=== PATIENT | female | born 1960 ===

== ENCOUNTER 2018-08-25 18:48 | Emergency (ER) | payer SELFPAY ==
[2018-08-25 19:05] VITALS: TEMP 98.3
[2018-08-25] MEDS ORDERED: DiphenhydrAMINE 50 mg/ml Inj IVP STA (19:51)
--- NOTE | 2018-08-25 19:51 | ED PDOC ---
HPI: Allergic Reaction Time Seen by Provider: 08/25/18 19:20 Chief Complaint (Nursing): Allergic Reaction Chief Complaint (Provider): Rash History Per: Patient, Health Communications Specialist (Marichuy Bradley #[id number]) History/Exam Limitations: no limitations Onset/Duration Of Symptoms: Days (x1) Current Symptoms Are (Timing): Still Present Additional Complaint(s): 57 year old female with pmhx of htn (clinic doctor took her off meds in jul.) presents to the ED for evaluation of a rash. Patient states that yesterday she developed an itchy, red, and swollen rash to her face which spread to her chest and back around 0500 this morning. Otherwise, denies respiratory symptoms, throat swelling, fever, vomiting, and any new exposures such as but not limited to food, perfumes, detergents, or lotions. Did not take any medications since onset of symptoms and has never had a rash like this before. PMD: Clinic Past Medical History Reviewed: Historical Data, Nursing Documentation, Vital Signs Vital Signs: Last Vital Signs Temp 98.3 F 08/25/18 19:03 Pulse 80 08/25/18 19:03 Resp 16 08/25/18 19:03 BP 171/77 H 08/25/18 19:03 Pulse Ox 100 08/25/18 19:03 - Medical History PMH: HTN - Surgical History Surgical History: No Surg Hx - Family History Family History: States: Unknown Family Hx - Social History Current smoker - smoking cessation education provided: No Alcohol: None Drugs: Denies - Home Medications Home Medications: Ambulatory Orders Medication Instructions Recorded Enalapril Maleate [Vasotec] 10 mg PO DAILY #30 tab 03/19/15 Enalapril Maleate 10 mg PO DAILY #7 tablet 07/16/15 DiphenhydrAMINE [Benadryl] 25 mg PO Q6H PRN #10 cap 08/25/18 Famotidine [Pepcid] 20 mg PO BID #10 tab 08/25/18 predniSONE [Prednisone] 40 mg PO DAILY #8 tab 08/25/18 - Allergies Allergies/Adverse Reactions: Allergies Allergy/AdvReac Type Severity Reaction Status Date / Time No Known Allergies Allergy Verified 08/25/18 19:02 Review of Systems ROS Statement: Except As Marked, All Systems Reviewed And Found Negative Constitutional: Negative for: Fever ENT: Negative for: Throat Swelling Respiratory: Negative for: Cough, Shortness of Breath, Wheezing Gastrointestinal: Negative for: Vomiting Skin: Positive for: Rash (itchy, swollen, and red to face, chest, and back) Physical Exam - Reviewed Nursing Documentation Reviewed: Yes Vital Signs Reviewed: Yes - Physical Exam Appears: Positive for: No Acute Distress Head Exam: Positive for: ATRAUMATIC, NORMOCEPHALIC Skin: Positive for: Rash (pruritic urticarial rash noted to face, chest, and back) Eye Exam: Positive for: Normal appearance ENT: Positive for: Normal ENT Inspection, Pharynx Is (clear and unremarkable). Negative for: Pharyngeal Erythema, Tonsillar Swelling Neck: Positive for: Normal, Painless ROM, Supple Cardiovascular/Chest: Positive for: Regular Rate, Rhythm Respiratory: Positive for: Normal Breath Sounds. Negative for: Accessory Muscle Use, Stridor, Wheezing, Respiratory Distress Gastrointestinal/Abdominal: Positive for: Normal Exam, Soft. Negative for: Tenderness Neurological/Psych: Positive for: Awake, Alert, Oriented (x3). Negative for: Motor/Sensory Deficits - ECG O2 Sat by Pulse Oximetry: 100 (RA) Pulse Ox Interpretation: Normal - Progress ED Course And Treament: Time: 1950 Initial Impression: allergic reaction Initial Plan: --Benadryl 50mg IVP --Pepcid 20mg IVP --SOLU-medrol 125mg IVP --Reevaluation 2250 pt observed in the ER Upon reevaluation, patient's rash completely resolved. Advised to follow up with PMD to obtain [employer] referral. Return parameters discussed and patient verbalized understanding and agreement. Stable for discharge. Scribe Attestation: Documented by Megan Gibbs, acting as a scribe for Kareem Dueñas MD. Provider Scribe Attestation: All medical record entries made by the Scribe were at my direction and personall y dictated by me. I have reviewed the chart and agree that the record accurately reflects my personal performance of the history, physical exam, medical decision making, and the department course for this patient. I have also personally directed, reviewed, and agree with the discharge instructions and disposition. Disposition - Clinical Impression Clinical Impression: Allergic reaction - Patient ED Disposition Is Patient to be Admitted: No Counseled Patient/Family Regarding: Diagnosis, Need For Followup - Disposition Disposition: Routine/Home Disposition Time: 22:51 Condition: IMPROVED Additional Instructions: Nadia un seguimiento con dominguez mdico para que lo recomiende un alerglogo para determinar a qu es alrgico. volver a la noreen de urgencias con cualquier empeoramiento o sntomas relacionados Prescriptions: DiphenhydrAMINE [Benadryl] 25 mg PO Q6H PRN #10 cap PRN Reason: Rash Famotidine [Pepcid] 20 mg PO BID #10 tab predniSONE [Prednisone] 40 mg PO DAILY #8 tab Instructions: Hives, Skin Rash (DC) Forms: [employer] (Amharic), [employer] (Tristanian) Print Language: [place]
[2018-08-25 23:15] VITALS: BP 155/89; PULSE 81; RESP 17
[2018-08-26 06:40] VITALS: O2SAT 100
== END 2018-08-25 23:14 | disposition home or self-care (01) ==
LOC: H.ER 18:48
DX: T78.40XA Allergy, unspecified, initial encounter (principal); I10 Essential (primary) hypertension
CPT/HCPCS: 96374; 96375; 99283; J1200; J2930